=== PATIENT | female | born 1990 | race Caucasian/White ===

== ENCOUNTER 2017-01-16 04:52 | Emergency (ER) | payer SELFPAY ==
[~2017-01-16] VITALS: Ht 165.1 cm; Wt 74.8 kg
--- NOTE | 2017-01-16 05:00 | NUR ---
PATIENT WALKED INTO ER C/O MID ABDOMINAL PAIN 03/31 WITH N/V THAT STARTED 2HRS PRIOR TO ARRIVAL. PATIENT STATES HAD GASTRIC BALLOON PLACED ON 01/15/17 AT [facility], PT IS ALERT, ORIENTED X 4, NO RESP DISTRESS NOTED OR REPORTED UPON ASSESSMENT... MD AT BEDSIDE...
[2017-01-16] MEDS ORDERED: MORPHINE SULFATE 2 MG/1 ML DISP.SYRIN IV ONE ×2 (05:15→06:00)
[2017-01-16] MEDS ORDERED: IV NORMAL SALINE 1000 ML BAG IV ONE ×2 (05:15→06:00)
[2017-01-16] MEDS ORDERED: ONDANSETRON 4 MG/2 ML VIAL IV ONE (05:15)
[2017-01-16 05:34] LABS: *BILIRUBIN,URIN NEGATIVE (NEGATIVE); *BLOOD, URINE Trace-intact (NEGATIVE); *CLARITY,URINE SLIGHTLY CLOUDY (CLEAR); *COLOR,URINE YELLOW (YELLOW); *KETONES,URINE 4+ (NEGATIVE); *PROTEIN,URINE 1+ (NEGATIVE); *UROBILINOGEN,URINE 0.2 E.U./dl (NORMAL); LEUKOCYTE ESTERASE ,URINE 1+ (NEGATIVE); NITRITE, URINE NEGATIVE (NEGATIVE); PH,URINE 5.5 (5.0-8.0); UGLUCOSE NEGATIVE (NEGATIVE)
[2017-01-16] MEDS ORDERED: ONDANSETRON 4 MG/2 ML VIAL ONE (05:36)
[2017-01-16] MEDS ORDERED: MORPHINE SULFATE 4 MG/1 ML DISP.SYRIN ONE ×2 (05:36→06:14)
[2017-01-16 05:38] LABS: BASOPHILS % (AUTO) 0.3 % (0.0-2.0); EOSINOPHILS % (AUTO) 0.1 % (0.0-7.0); HEMATOCRIT 39.5 % (37-47); HEMOGLOBIN 13.1 G/DL (12.0-16.0); LYMPHOCYTES # (AUTO) 1.2 K/UL (0.8-4.8); LYMPHOCYTES % (AUTO) 13.8 % (20.5-51.5); MEAN CORPUSCULAR HGB CONC 33 g/dL (32.0-37.0); MEAN CORPUSCULAR VOLUME 81.4 FL (81.0-99.0); MONOCYTES # (AUTO) 0.3 K/UL (0.1-1.30); MONOCYTES % (AUTO) 3.8 % (0.0-11.0); NEUTROPHILS # (AUTO) 7.4 K/UL (1.8-8.9); PLATELET COUNT (AUTO) 302 K/UL (150-450); RED BLOOD CELL COUNT(AUTO) 4.86 MIL/UL (4.2-5.4); WHITE BLOOD COUNT (AUTO) 8.9 K/UL (4.0-11.2)
--- NOTE | 2017-01-16 05:39 | NUR ---
PER ERMD, STATES IS NEGATIVE, CONTACTED TRAINING INTERN AND ADVISED PT READY FOR SCAN OF ABDOMEN AND PELVIS...
[2017-01-16 05:44] LABS: CREATININE 0.7 mg/dL (0.6-1.3); POTASSIUM 4.1 mmol/L (3.5-5.1)
[2017-01-16 05:44] LABS: *URINE HCG, QUAL NEGATIVE (NEGATIVE); BACTERIA,URINE FEW /HPF (NONE SEEN); SQUAMOUS EPITHELIAL CELL,UR MANY /HPF (NONE SEEN)
[2017-01-16 05:50] LABS: BILIRUBIN,DIRECT 0.2 mg/dL (0.0-0.2); BILIRUBIN,TOTAL 0.7 mg/dL (0.2-1.0); TOTAL PROTEIN, SERUM 8.6 g/dL (6.4-8.2)
[2017-01-16] MEDS ORDERED: CEFTRIAXONE 1 G in IV DEXTROSE 5% 50 ML IV ONE (06:00)
[2017-01-16] MEDS ORDERED: CEFTRIAXONE 1 G VIAL ONE (06:11)
--- NOTE | 2017-01-16 07:07 | NUR ---
REPORT GIVEN TO DAYSHIFT NURSE...
--- NOTE | 2017-01-16 07:10 | NUR ---
Report received from night warehouse manager. Pt resting, appears comfortable, states she "feels much better".
--- NOTE | 2017-01-16 08:18 | NUR ---
IV removed. Catheter intact and site benign. Pressure and 4x4 gauze applied to site. No bleeding noted.
--- NOTE | 2017-01-16 08:20 | NUR ---
Patient discharged to home in stable conditon with family. Written and verbal after care instructions given. Patient verbalizes understanding of instructions. Stressed follow up.
== END 2017-01-16 08:26 | disposition home or self-care (01) ==
LOC: ER 04:54
DX: N39.0 Urinary tract infection, site not specified (principal); E86.0 Dehydration
CPT/HCPCS: 36415; 83690; 84703; 85025; A4663; J0696; J2270; J2405; J7030; J7060